=== PATIENT | female | born 1950 | race Caucasian/White ===

== ENCOUNTER 2019-07-28 09:23 | Emergency (ER) | payer OTHER, MEDICARE ==
[2019-07-28] MEDS ORDERED: HYDROMORPHONE HCL INJ/PF 2 MG/ML AMPULE IV ONE (09:58)
[2019-07-28] MEDS ORDERED: ONDANSETRON HCL INJ/PF 4 MG/2 ML SDV IV ONE ×2 (09:59→11:46)
[2019-07-28 10:28] LABS: ABSOLUTE EOSINOPHILS # (AUTO) 0.1 10^3/uL (0.0-0.6); ABSOLUTE MONOCYTES (AUTO) 0.7 10^3/uL (0.1-1.4); ABSOLUTE NEUT (AUTO) 7.3 10^3/uL (1.7-8.2); BASOPHILS % (AUTO) 0.3 % (0-2); EOSINOPHILS % (AUTO) 1.1 % (0-6); HEMATOCRIT 41.2 % (36.0-47.0); HEMOGLOBIN 13.7 g/dL (12.0-15.5); LYMPHOCYTES % (AUTO) 26.5 % (13-45); MEAN CORPUSCULAR HEMOGLOBIN 27.7 pg (27.0-33.4); MEAN CORPUSCULAR HGB CONC 33.2 g/dL (32.0-36.0); MEAN CORPUSCULAR VOLUME 84 fl (80-97); MONOCYTES % (AUTO) 6.6 % (3-13); PLATELET COUNT 311 10^3/uL (150-450); RED BLOOD COUNT 4.93 10^6/uL (3.72-5.28); RED CELL DISTRIBUTION WIDTH 15.2 % (11.5-14.0); SEGMENTED NEUTROPHILS % (AUTO) 65.5 % (42-78); TOTAL CELLS COUNTED % (AUTO) 100 %; WHITE BLOOD COUNT 11.1 10^3/uL (4.0-10.5)
[2019-07-28 10:36] LABS: ALBUMIN 4.5 g/dL (3.5-5.0); ALKALINE PHOSPHATASE 74 U/L (38-126); ANION GAP 12 (5-19); ASPARTATE AMINO TRANSFERASE 28 U/L (14-36); BILIRUBIN,DIRECT 0.2 mg/dL (0.0-0.4); BILIRUBIN,TOTAL 0.5 mg/dL (0.2-1.3); BLOOD UREA NITROGEN 13 mg/dL (7-20); CALCIUM 9.4 mg/dL (8.4-10.2); CARBON DIOXIDE 23 mmol/L (22-30); CHLORIDE 106 mmol/L (98-107); GLUCOSE 111 mg/dL (75-110); TOTAL PROTEIN 7.8 g/dL (6.3-8.2)
--- NOTE | 2019-07-28 10:54 | RADIOLOGY REPORT (SQ) ---
EXAM DESCRIPTION: HUMERUS LEFT COMPLETED DATE/TIME: 07/28/2019 10:20 am REASON FOR STUDY: bone tenderness COMPARISON: Left shoulder films same date NUMBER OF VIEWS: Two views. TECHNIQUE: Two radiographic images were acquired of the left humerus to include elbow and shoulder i n at least one projection. LIMITATIONS: None. FINDINGS: MINERALIZATION: Overall bone density is normal for age. BONES: No acute fracture or dislocation. In the left proximal humeral diaphysis, a 7 to 8 cm long ar ea of medullary space calcifications/ossification is present assuming ring and arc shaped. This most likely represents a benign chondroid lesion. However, given history of left arm pain, more aggressi ve chondroid tumor could not entirely be excluded. Orthopedic consultation, bone scan recommended fo r follow-up. SOFT TISSUES: No obvious swelling or foreign body. OTHER: No other significant finding. IMPRESSION: Left proximal humeral diaphysis calcified/ ossified medullary space lesions with charact eristic appearance for chondroid lesion. 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 However, given history of pain, more aggressive chondroid tumor could not be excluded. Orthopedic consultation and bone scan recommended for follow-up. TECHNICAL DOCUMENTATION: JOB ID: [id number] [employer]- All Rights Reserved Reading location - IP/workstation name: [facility]
--- NOTE | 2019-07-28 10:55 | RADIOLOGY REPORT (SQ) ---
EXAM DESCRIPTION: SHOULDER LEFT 2 OR MORE VIEWS COMPLETED DATE/TIME: 07/28/2019 10:20 am REASON FOR STUDY: bone tenderness COMPARISON: Left humerus films same date NUMBER OF VIEWS: Three views. TECHNIQUE: Internal rotation, external rotation, and Y view images acquired of the left shoulder. LIMITATIONS: None. FINDINGS: MINERALIZATION: Normal. BONES: No acute fracture. Left proximal humeral diaphysis calcified/ ossified medullary space lesion with characteristic appearance for chondroid lesion. 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 H owever, given history of pain, more aggressive chondroid tumor could not be excluded. Orthopedic con sultation and bone scan recommended for follow-up.. JOINTS: No glenohumeral dislocation. Mild acromioclavicular joint bony spurring. VISUALIZED LUNGS AND RIBS: No pneumothorax. No rib fracture. SOFT TISSUES: No radiopaque foreign body. OTHER: No other significant finding. IMPRESSION: NO RADIOGRAPHIC EVIDENCE OF ACUTE INJURY. CHONDROID LESION IN THE PROXIMAL LEFT HUMERUS. DISCUSSION ABOVE TECHNICAL DOCUMENTATION: JOB ID: [id number] [employer]- All Rights Reserved Reading location - IP/workstation name: [facility]
--- NOTE | 2019-07-28 10:56 | RADIOLOGY REPORT (SQ) ---
EXAM DESCRIPTION: ELBOW LEFT OVER 2 VIEWS COMPLETED DATE/TIME: 07/28/2019 10:20 am REASON FOR STUDY: bone tenderness COMPARISON: LEFT HUMERUS FILMS SAME DATE NUMBER OF VIEWS: Four views. TECHNIQUE: AP, lateral, and both oblique radiographic images acquired of the left elbow. LIMITATIONS: None. FINDINGS: MINERALIZATION: Normal. BONES: No acute fracture or dislocation. No worrisome bone lesions. JOINT: No effusion. SOFT TISSUES: No soft tissue swelling. No foreign body. OTHER: No other significant finding. IMPRESSION: NEGATIVE STUDY OF THE LEFT ELBOW. NO RADIOGRAPHIC EVIDENCE OF ACUTE INJURY. TECHNICAL DOCUMENTATION: JOB ID: [id number] [employer]- All Rights Reserved Reading location - IP/workstation name: [facility]
--- NOTE | 2019-07-28 10:57 | RADIOLOGY REPORT (SQ) ---
EXAM DESCRIPTION: CHEST SINGLE VIEW COMPLETED DATE/TIME: 07/28/2019 10:20 am REASON FOR STUDY: left shoulder pain COMPARISON: Left shoulder and humerus films same date EXAM PARAMETERS: NUMBER OF VIEWS: One view. TECHNIQUE: Single frontal radiographic view of the chest acquired. RADIATION DOSE: NA LIMITATIONS: None. FINDINGS: LUNGS AND PLEURA: No opacities, masses or pneumothorax. No pleural effusion. MEDIASTINUM AND HILAR STRUCTURES: No masses. Contour normal. HEART AND VASCULAR STRUCTURES: Heart normal in size. Normal vasculature. BONES: Chondroid lesion proximal left humeral diaphysis at the edge of the field of view. Please see the left humerus dictation for discussion HARDWARE: None in the chest. OTHER: No other significant finding. IMPRESSION: No acute cardiopulmonary changes. TECHNICAL DOCUMENTATION: JOB ID: [id number] [email or web address]- All Rights Reserved Reading location - IP/workstation name: [email or web address]
--- NOTE | 2019-07-28 11:49 | EKG REPORT ---
SEVERITY:- NORMAL ECG - SINUS RHYTHM : Confirmed by: Windy Alonzo MD 28-Jul-2019 11:49:09
--- NOTE | 2019-07-28 11:53 | ER Document Report ---
Entered by WYATT FINK SCRIBE 07/28/19 0946 Acting as scribe for:APRYL DOWNING IV, MD ED General - General Chief Complaint: Arm Pain Stated Complaint: LEFT NECK,SHOULDER,ARM PAIN Primary Care Provider: [facility] [Provider Group] - Follow up in 3-5 days (Call the office Tuesday morning to schedule an appointment for this week. ) SHANTANU ROYAL MD [Primary Care Provider] - Follow up as needed Mode of Arrival: Ambulatory Information source: Patient Notes: 69-year-old female that presents to the emergency department today with complaints of left upper extremity pain that began yesterday morning. Patient states it "sort of" woke her up from sleeping. Patient states the pain seems to radiate from her shoulder down to her elbow. Patient denies any neck pain. Patient reports a remote history of a fall, approximately 1 month ago, stating she "fell through a roof". Patient reports that she did not have any pain after that so she does not think it was related to this pain today. Patient denies any history of clotting disorders. Patient denies chest pain. 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 PCP: Dr. Shantanu Royal - Related Data Allergies/Adverse Reactions: acetaminophen [From Vicodin] Allergy (Verified 07/28/19 10:51) codeine Allergy (Verified 07/28/19 10:51) Hives hydrocodone [From Vicodin] Allergy (Verified 07/28/19 10:51) oxycodone [From Percocet] Allergy (Verified 07/28/19 10:51) Past Medical History - General Information source: Patient - Social History Smoking Status: Unknown if Ever Smoked Cigarette use (# per day): No Frequency of alcohol use: None Drug Abuse: None Lives with: Family Family History: Reviewed & Not Pertinent Past Surgical History: Reports: Other - Previous drainage of "nonmalignant bone tumor" of left humerus Review of Systems - Review of Systems Constitutional: No symptoms reported EENT: No symptoms reported Cardiovascular: No symptoms reported Respiratory: No symptoms reported Gastrointestinal: No symptoms reported Genitourinary: No symptoms reported Female Genitourinary: No symptoms reported Musculoskeletal: See HPI, Joint pain - LUE pain Skin: No symptoms reported Hematologic/Lymphatic: No symptoms reported Neurological/Psychological: No symptoms reported -: Yes All other systems reviewed and negative Physical Exam - Vital signs Vitals: Temp Pulse Resp BP Pulse Ox 97.5 F 75 18 142/92 H 96 07/28/19 09:30 07/28/19 09:30 07/28/19 09:30 07/28/19 09:30 07/28/19 09:30 - Notes Notes: Physical Exam: General: Alert, appears uncomfortable. HEENT: Normocephalic. Atraumatic. PERRL. Extraocular movements intact. Oropharynx clear. Neck: Supple. Non-tender. Respiratory: No respiratory distress. Clear and equal breath sounds bilaterally. Cardiovascular: Regular rate and rhythm. Abdominal: Normal Inspection. Non-tender. No distension. Normal Bowel Sounds. Back: No gross abnormalities. Extremities: Moves all four extremities. Upper extremities: Pain with abduction of left upper extremity. Pain with rotation of the forearm greater than 90 degrees posteriorly. There is no anterior fullness, crepitus, or step-off. Lower extremities: Normal inspection. No edema. Normal ROM. Neurological: Normal cognition. AAOx4. Normal speech. Psychological: Normal affect. Normal Mood. Skin: Warm. Dry. Normal color. Course - Vital Signs Vital signs: Temp Pulse Resp BP Pulse Ox 97.2 F 88 16 144/70 H 97 07/28/19 12:45 07/28/19 12:45 07/28/19 12:45 07/28/19 12:45 07/28/19 12:45 - Laboratory Result Diagrams: 07/28/19 09:25 07/28/19 09:25 Laboratory results interpreted by me: 07/28/19 07/28/19 09:25 09:25 WBC 11.1 H RDW 15.2 H Glucose 111 H - EKG Interpretation by Me Additional EKG results interpreted by me: 07/28/19 11:53 EKG performed on 07/28/2019 at 1040 hrs. was interpreted by this MD. Findings: Normal sinus rhythm, rate 68, normal axis, pes preceding QRS complexes, QRS complexes appear narrow, no patterns of ST elevation or depression are present to suggest ischemia or infarction. Impression normal sinus rhythm with no acute findings. Discharge - Discharge Clinical Impression: Left shoulder pain Condition: Good Disposition: HOME, SELF-CARE Instructions: Temporary Sling ([facility]) Additional Instructions: Shoulder Injury You have injured your shoulder. This usually results from stretching or tearing of the tendons during trauma. Time and protection are required in order to heal properly. Many injuries are quite disabling, and should be taken seriously. Initial treatment includes cold packs and a sling to rest the shoulder. The physician has assessed the seriousness of your injury, and has outlined a treatment plan. Understand that this treatment may change, depending on how you progress. If a re-examination was recommended, it is important that you follow up as instructed. Some shoulder injuries (such as partial tear of the rotator cuff) are only suspected after you've failed to improve. Call us if there's severe pain, numbness, or loss of function. Rotator Cuff Injury You have injured your rotator cuff. This is a group of tendons that form a "cuff" around the upper arm bone. This usually results from an injury that tears the tendons, but sometimes the rotator cuff simply "wears out." If the rotator cuff is only partially torn, time and protection may allow it to heal. This may take several weeks. If the shoulder doesn't become free of pain, surgery may be considered. A complete tear of the rotator cuff requires surgery. If the shoulder is too painful to move, we may need to recheck in a few days. An arthrogram (injecting dye into the joint) or MR scan may be necessary to resolve the question. Initial treatment includes cold packs and a sling to rest the shoulder. We usually prescribe antiinflammatory medication. Be sure to keep your follow up appointment. Call us any time if there's severe pain, numbness, or loss of function.Please call [facility] for surgery on Tuesday morning for an appointment this week. HOME CARE INSTRUCTIONS & INFORMATION: Thank you for choosing us for your medical needs. We hope you're satisfied with the care you received. After you leave, you must properly care for your problem and, at the same time, observe its progress. Any condition can change. Some illnesses can change rapidly over hours or days. If your condition worsens, return to the Emergency Department or see your physician promptly. ABOUT YOUR X-RAYS AND EKG'S: If you had an EKG or X-rays taken, they have been read by the Emergency Physician. The X-rays and EKG's will also be read by a Radiologist or Journeyman Plumber within 24 hours. If discrepancies are noted, you will be notified by telephone. Please be certain the ED has a correct telephone number & address where you can be reached. Also, realize that some fractures or abnormalities do not show up on initial X-rays. If your symptoms continue, see your physician. ABOUT YOUR LABORATORY TEST: If you had laboratory tests, the results have been reviewed by the Emergency Physician. Some test results (for example cultures) may not be available for several days. You will be contacted if any test result shows you need additional treatment. Please be certain the ED has a correct [employer] number and address where you can be reached. ABOUT YOUR MEDICATIONS: You will receive instructions on how to take your medicine on the prescription label you receive. Additional information may be provided by the Pharmacy. If you have questions afterwards, call the ED for clarification or further instructions. Some prescribed medications may cause drowsiness. Do not perform tasks such as driving a car or operating machinery without consulting your Pharmacist. If you feel you need a refill of pain medication, your condition will need re-evaluation. Please do not call for a refill of any medication. ABOUT YOUR SIGNATURE: Signature of this document acknowledges to followin. Understanding that you received emergency treatment and that you may be released before al medical problems are known or treated. Please be certain the ED has a correct phone number & address where you can be reached. 2. Acknowledgement that you will arrange for follow-up care as recommended. 3. Authorization for the Emergency Physician to provide information to your follow-up Physician in order to maximize your care. AT ANY TIME, IF YOUR SYMPTOMS CHANGE SIGNIFICANTLY OR WORSEN OR YOU DEVELOP NEW SYMPTOMS, RETURN TO THE EMERGENCY DEPARTMENT IMMEDIATELY FOR RE-EVALUATION. OUR GOAL IS TO PROVIDE EXCELLENT MEDICAL CARE! WE HOPE THAT WE HAVE MET YOUR EXPECTATIONS DURING YOUR EMERGENCY DEPARTMENT VISIT AND THAT YOU FEEL YOU HAVE RECEIVED EXCELLENT CARE! Prescriptions: Hydromorphone HCl [Dilaudid 2 mg Tablet] 1 mg PO Q4HP PRN #12 tablet PRN Reason: Severe Pain Ondansetron HCl [Zofran 8 mg Tablet] 8 mg PO Q8HP PRN #15 tablet PRN Reason: NAUSEA/VOMITING Referrals: SHANTANU ROYAL MD [Primary Care Provider] - Follow up as needed [facility] [Provider Group] - Follow up in 3-5 days (Call the office Tuesday morning to schedule an appointment for this week. ) I personally performed the services described in the documentation, reviewed and edited the documentation which was dictated to the scribe in my presence, and it accurately records my words and actions.
[2019-07-28 12:47] VITALS: BP 144/70
== END 2019-07-28 12:47 | disposition home or self-care (01) ==
LOC: ER 09:23
DX: M25.512 Pain in left shoulder (principal); M79.602 Pain in left arm; M54.2 Cervicalgia; Z91.81 History of falling
CPT/HCPCS: 93005; 96376; 99284; 96374; 96375; 36415; 85025; 80053; 84484; 71045; 73080; 73060; 73030; 93010; J1170; J2405

== ENCOUNTER → 2020-06-26 | Outpatient (CLI) | payer MEDICARE, OTHER ==
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
== END ==
LOC: RAD 11:02
PROVIDERS: ATTEND Internal Medicine
DX: M54.40 Lumbago with sciatica, unspecified side (principal); M47.816 Spondylosis without myelopathy or radiculopathy, lumbar region
CPT/HCPCS: 72110